=== PATIENT | female | born 1990 | race Caucasian/White ===

== ENCOUNTER 2018-02-24 00:43 | Emergency (ER) | payer MEDICAID ==
[2018-02-24] MEDS ORDERED: EPINEPHrine 1 MG/ML INJ IM ONE (00:48)
[2018-02-24] MEDS ORDERED: NS 1,000 ML IV ONE (00:48)
[2018-02-24] MEDS ORDERED: RANITIDINE 50 MG/2 ML VIAL IVP ONE (00:48)
[2018-02-24] MEDS ORDERED: methylPREDNISolone SOD SUCC 125 MG/2 ML VIAL IVP ONE (00:48)
--- NOTE | 2018-02-24 00:51 | EDPHY ---
H & P Time Seen by Provider: 02/24/18 00:49 HPI/ROS: HPI CHIEF COMPLAINT: Allergic reaction HISTORY OF PRESENT ILLNESS: 27-year-old female, allergic to bees, typically carries an EpiPen but could not find tonight, states she was stung by a bee in the left lower leg she has not see the be however shortly after feeling the discomfort she started stating that having trouble swallowing trouble breathing. Denies urticaria, denies wheezing, denies chest pain, denies GI upset vomiting or diarrhea. She states this happened an hour ago. She presented to the emergency room by private vehicle. Past Medical History: No significant medical history allergic to bees. Past Surgical History: No significant surgical history Social History: Alcohol this evening had 6 liquor drinks. Family History: Noncontributory ROS REVIEW OF SYSTEMS: A comprehensive 10 point review of systems is otherwise negative aside from elements mentioned in the history of present illness. Exam Constitutional nontoxic appearing in no acute distress triage nursing summary reviewed, vital signs reviewed, awake/alert. Eyes normal conjunctivae and sclera, EOMI, PERRLA. HENT posterior pharynx unremarkable, no stridor, no trouble swallowing normal inspection, atraumatic, moist mucus membranes, no epistaxis, neck supple/ no meningismus, no raccoon eyes. Respiratory no wheezing, no stridor, good air movement bilaterally, clear to auscultation bilaterally, normal breath sounds, no respiratory distress, no wheezing. Cardiovascular rate normal, regular rhythm, no murmur, no edema, distal pulses normal. Gastrointestinal soft, non-tender, no rebound, no guarding, normal bowel sounds, no distension, no pulsatile mass. Genitourinary no CVA tenderness. Musculoskeletal no midline vertebral tenderness, full range of motion, no calf swelling, no tenderness of extremities, no meningismus, good pulses, neurovascularly intact. Skin no urticaria, pink, warm, & dry, no rash, skin atraumatic. Neurologic awake, alert and oriented x 3, AAOx3, moves all 4 extremities equally, motor intact, sensory intact, CN II-XII intact, normal cerebellar, normal vision, normal speech. Psychiatric normal mood/affect. Heme/Lymph/Immune no lymphadenopathy. Differential Diagnosis: Includes but is not limited to in a particular order acute allergic reaction, bee envenomation, anaphylaxis, severe allergy. Medical Decision Making: Plan for this patient IV establishment IV fluid bolus , IV Solu-Medrol IV Benadryl IV Zantac epinephrine pen 0.3 mg IM. Re-evaluate. Close monitoring for progression of allergic reaction. Re-evaluation: 0300: Patient observed here over 2 hr. Resting comfortably no acute distress. She is asking to be discharged she states she feels fine. There has been no progression of allergic reaction. She wants to go home. She states she has no trouble breathing or swallowing. No urticaria. She is requesting discharge. I discussed return precautions with her she understands return emergency room if develops any worsening symptoms this includes trouble breathing, trouble swallowing, worsening symptoms worsening rash trouble prescribed prednisone, Benadryl and Pepcid for the next 3 days. EpiPen as well. She has an EpiPen at home. Return if any worsening symptoms she understands. Source: Patient Constitutional: Initial Vital Signs Temperature (C) 36.6 C 02/24/18 00:46 Heart Rate 96 02/24/18 00:46 Respiratory Rate 18 02/24/18 00:46 Blood Pressure 156/94 H 02/24/18 00:46 O2 Sat (%) 93 02/24/18 00:46 O2 Delivery Mode Room Air Allergies/Adverse Reactions: bee pollen Allergy (Verified 02/24/18 00:50) Latex, Natural Rubber Allergy (Verified 02/24/18 00:50) Home Medications: Medication Instructions Recorded EPINEPHrine [Epipen 0.3 MG] 0.3 mg IM ONCE #2 syr 02/24/18 Famotidine [Pepcid 20 MG (*)] 20 mg PO BID #6 tab 02/24/18 diphenhydrAMINE [Benadryl 25 MG 25 mg PO BID #6 tab 02/24/18 (*)] predniSONE 60 mg PO DAILY #9 tab 02/24/18 Medical Decision Making - Data Points Medications Given: Discontinued Medications Diphenhydramine HCl (Benadryl Injection) 50 mg IVP EDNOW ONE Stop: 02/24/18 00:49 Last Admin: 02/24/18 00:59 Dose: 50 mg Epinephrine HCl (Epinephrine) 0.3 mg IM EDNOW ONE Stop: 02/24/18 00:49 Last Admin: 02/24/18 00:54 Dose: 0.3 mg Sodium Chloride (Ns) 1,000 mls @ 0 mls/hr IV ONCE ONE; Wide Open PRN Reason: Protocol Stop: 02/24/18 00:49 Last Admin: 02/24/18 00:56 Dose: 1,000 mls Methylprednisolone Sodium Succinate (Solu-Medrol) 125 mg IVP EDNOW ONE Stop: 02/24/18 00:49 Last Admin: 02/24/18 00:59 Dose: 125 mg Ranitidine HCl (Zantac) 50 mg IVP EDNOW ONE Stop: 02/24/18 00:49 Last Admin: 02/24/18 00:56 Dose: 50 mg Departure - Departure Disposition: Home, Routine, Self-Care Clinical Impression: Allergic reaction Qualifiers: Encounter type: initial encounter Qualified Code(s): T78.40XA - Allergy, unspecified, initial encounter Condition: Fair Instructions: Urticaria (ED), Anaphylaxis (ED), Allergies (ED) Additional Instructions: 1. Return emergency room immediately if he develops further signs or symptoms of allergic reaction this includes trouble breathing, trouble swelling, rash. 2. Prednisone for the next 3 days Benadryl for the next 3 days Pepcid for the next 2 days 3. I refilled epinephrine pen. 4. If you have a rebound or return of allergic reaction call 911 and return to the emergency room. Referrals: NONE *PRIMARY CARE P,. [Primary Care Provider] - As per Instructions Prescriptions: diphenhydrAMINE [Benadryl 25 MG (*)] 25 mg PO BID #6 tab EPINEPHrine [Epipen 0.3 MG] 0.3 mg IM ONCE #2 syr Famotidine [Pepcid 20 MG (*)] 20 mg PO BID #6 tab predniSONE 60 mg PO DAILY #9 tab
[2018-02-24 03:06] VITALS: BP 112/48
== END 2018-02-24 03:11 | disposition home or self-care (01) ==
DX: T63.441A Toxic effect of venom of bees, accidental (unintentional), initial encounter (principal); E86.9 Volume depletion, unspecified; Z91.040 Latex allergy status
CPT/HCPCS: 96374; J0171; J1200; J2780; J2930

== ENCOUNTER 2018-03-02 17:18 | Emergency (ER) | payer MEDICAID ==
[2018-03-02] MEDS ORDERED: LORazepam 1 MG TAB PO ONE (17:56)
--- NOTE | 2018-03-02 17:59 | EDPHY ---
H & P Stated Complaint: SOB/nausea starting today, here 1 week ago for bee sting Time Seen by Provider: 03/02/18 17:47 HPI/ROS: CHIEF COMPLAINT: Shortness of breath HISTORY OF PRESENT ILLNESS: Patient is a 27-year-old female who is here 6 days ago for a bee sting and urticaria. She states that she just took her last dose of prednisone today and soon thereafter began feeling short of breath. She fell also feels very anxious. She has not had any leg pain or swelling. No urticaria. No swelling of her mouth or throat. She was told to come back to the ER if she had return of shortness of breath. No fever, no cough. No chest pain. No history of cardiac disease. No history of asthma. REVIEW OF SYSTEMS: Constitutional: denies: chills, fever, recent illness, recent injury EENTM: denies: blurred vision, double vision, nose congestion Respiratory: See HPI Cardiac: denies: chest pain, irregular heart rate, lightheadedness, palpitations Gastrointestinal/Abdominal: denies: abdominal pain, diarrhea, nausea, vomiting, blood streaked stools Genitourinary: denies: dysuria, frequency, hematuria, pain Musculoskeletal: denies: joint pain, muscle pain Skin: denies: lesions, rash, jaundice, bruising Neurological: denies: headache, numbness, paresthesia, tingling, dizziness, weakness Hematologic/Lymphatic: denies: blood clots, easy bleeding, easy bruising Immunologic/allergic: denies: HIV/AIDS, transplant EXAM: GENERAL: Anxious, well-nourished and in no acute distress. HEAD: Atraumatic, normocephalic. EYES: Pupils equal round and reactive to light, extraocular movements intact, sclera anicteric, conjunctiva are normal. ENT: TMs normal, nares patent, oropharynx clear without exudates. Moist mucous membranes. NECK: Normal range of motion, supple without lymphadenopathy or JVD. LUNGS: Breath sounds clear to auscultation bilaterally and equal. No wheezes rales or rhonchi. HEART: Tachycardic, Regular rate and rhythm without murmurs, rubs or gallops. ABDOMEN: Soft, nontender, normoactive bowel sounds. No guarding, no rebound. No masses appreciated. BACK: No CVA tenderness, no spinal tenderness, step-offs or deformities EXTREMITIES: Normal range of motion, no pitting or edema. No clubbing or cyanosis. NEUROLOGICAL: Cranial nerves II through XII grossly intact. Normal speech, normal gait. 5/5 strength, normal movement in all extremities, normal sensation PSYCH: Normal mood, normal affect. SKIN: Warm, dry, normal turgor, no visible rashes or lesions. Source: Patient Exam Limitations: No limitations - Personal History LMP (Females 10-55): Now - Medical/Surgical History Hx Asthma: No Hx Chronic Respiratory Disease: No Hx Diabetes: No Hx Cardiac Disease: No Hx Renal Disease: No Hx Cirrhosis: No Hx Alcoholism: No Hx HIV/AIDS: No Hx Splenectomy or Spleen Trauma: No Other PMH: Migraines - Family History Significant Family History: No pertinent family hx - Social History Smoking Status: Current every day smoker Alcohol Use: Sober Drug Use: None Constitutional: Initial Vital Signs Temperature (C) 36.6 C 03/02/18 17:21 Heart Rate 137 H 03/02/18 17:21 Respiratory Rate 20 03/02/18 17:21 Blood Pressure 162/93 H 03/02/18 17:21 O2 Sat (%) 95 03/02/18 17:21 O2 Delivery Mode Room Air Allergies/Adverse Reactions: bee pollen Allergy (Verified 03/02/18 17:21) Latex, Natural Rubber Allergy (Verified 03/02/18 17:21) Home Medications: Medication Instructions Recorded EPINEPHrine [Epipen 0.3 MG] 0.3 mg IM ONCE #2 syr 02/24/18 Famotidine [Pepcid 20 MG (*)] 20 mg PO BID #6 tab 02/24/18 diphenhydrAMINE [Benadryl 25 MG 25 mg PO BID #6 tab 02/24/18 (*)] predniSONE 60 mg PO DAILY #9 tab 02/24/18 Medical Decision Making - Diagnostics EKG Interpretation: An EKG obtained and was read and documented in trace view. Please see trace view for full reading and report. Sinus rhythm, no acute ischemic changes, no arrhythmia ED Course/Re-evaluation: Patient appears anxious. She has clear lung exam and is saturating 98% on room air. She is slightly tachycardic 110. No leg pain or swelling. No chest pain. No pleuritic pain. We discussed a PE workup but at this point she would prefer to simply have anxiety medicine. Will observe her and obtain an EKG as well. PERC score is negative other than the tachycardia. 7:00 p.m. the patient is feeling completely better. Her heart rate is 100. She has been drinking but is clinically sober. I recommended we obtain blood work to do a D-dimer since she is slightly tachycardic. At this point she declines and states that she feels completely better. I urged her to return if her symptoms worsen. She understands and agrees with this plan. Differential Diagnosis: Partial list of the Differential diagnosis considered include but were not limited to; anxiety, upper respiratory tract infection allergic reaction, P and although unlikely based on the history and physical exam, I also considered acute coronary disease, arrhythmia. - Data Points Medications Given: Discontinued Medications Lorazepam (Ativan) 1 mg PO EDNOW ONE Stop: 03/02/18 17:57 Last Admin: 03/02/18 18:08 Dose: 1 mg Departure - Departure Disposition: Home, Routine, Self-Care Clinical Impression: Anxiety about health Dyspnea Qualifiers: Dyspnea type: shortness of breath Qualified Code(s): R06.02 - Shortness of breath; R06.00 - Dyspnea, unspecified; R06.01 - Orthopnea Condition: Fair Instructions: Dyspnea (ED), Anxiety (ED) Referrals: NONE *PRIMARY CARE P,. [Primary Care Provider] - As per Instructions Beatrice Chaves DO [Doctor of Osteopathy] - As per Instructions
--- NOTE | 2018-03-02 18:28 | CPEKG ---
Heart Rate: 100 RR Interval: 600 P-R Interval: 126 QRSD Interval: 88 QT Interval: 340 QTC Interval: 439 P [place]: 61 QRS [place]: 74 T Wave [place]: 15 EKG Severity - BORDERLINE ECG - EKG Impression: SINUS TACHYCARDIA EKG Impression: PROBABLE LEFT ATRIAL ABNORMALITY Electronically Signed By: Cali Jensen 02-Mar-2018 18:29:10
[2018-03-02 19:24] VITALS: BP 122/80
== END 2018-03-02 19:24 | disposition home or self-care (01) ==
DX: R06.02 Shortness of breath (principal); F41.9 Anxiety disorder, unspecified; F17.200 Nicotine dependence, unspecified, uncomplicated